=== PATIENT | male | born 1980 | race Caucasian/White ===

== ENCOUNTER 2016-09-02 13:17 | Emergency (ER) | payer SELFPAY ==
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
[2016-09-02 16:57] VITALS: BP 132/74
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
== END 2016-09-02 16:56 | disposition home or self-care (01) ==
LOC: ED 13:17
DX: S16.1XXA Strain of muscle, fascia and tendon at neck level, initial encounter (principal); V49.9XXA Car occupant (driver) (passenger) injured in unspecified traffic accident, initial encounter; Y93.9 Activity, unspecified; Y92.9 Unspecified place or not applicable; R25.2 Cramp and spasm
CPT/HCPCS: 72020; 99282